=== PATIENT | male | born 1990 | race Caucasian/White ===

== ENCOUNTER 2019-04-08 01:30 | Emergency (ER) | payer OTHER ==
[~2019-04-08] VITALS: Ht 165.1 cm; Wt 74.8 kg
[2019-04-08 02:25] VITALS: BP_SYST 154
--- NOTE | 2019-04-08 02:27 | NUR ---
Patient to ER bed 8 to gown for evaluation. Side rails up.
--- NOTE | 2019-04-08 02:35 | NUR ---
Dr. Adkins bedside for Pt eval
--- NOTE | 2019-04-08 02:55 | NUR ---
Pt BIB family to ED C/O cough x 4 days. Reports sore throat, 8/10 ps and runny nose. No other injuries and or complaints noted VSS no s/s of acute distress Resting on gurney rails up
--- NOTE | 2019-04-08 03:52 | NUR ---
VSS no s/s of acute distress. Resting on gurney rails up
--- NOTE | 2019-04-08 04:11 | NUR ---
Dr. Adkins bedside for Pt update
[2019-04-08] MEDS ORDERED: AMOXICILLIN 500 MG CAPSULE PO ONE (04:45)
[2019-04-08 05:05] VITALS: BP_SYST 148
--- NOTE | 2019-04-08 05:05 | NUR ---
Patient given written and verbal discharge instructions and verbalizes understanding. ER MD discussed with patient the results and treatment provided. Patient in stable condition. ID arm band removed. Rx of Amoxicillin given. Patient educated on pain management and to follow up with PMD. Pain Scale 0/10 Opportunity for questions provided and answered. Medication side effect fact sheet provided.
== END 2019-04-08 05:05 | disposition home or self-care (01) ==
LOC: SED 01:30
DX: J40 Bronchitis, not specified as acute or chronic (principal); I10 Essential (primary) hypertension
CPT/HCPCS: 36415; 71045; 86403; 87081; 99284

== ENCOUNTER 2020-12-18 08:04 | Emergency (ER) | payer OTHER ==
[~2020-12-18] VITALS: Ht 167.6 cm; Wt 70.3 kg
[2020-12-18 08:05] VITALS: BP_SYST 158
[2020-12-18 08:57] VITALS: BP_SYST 158
== END 2020-12-18 08:58 | disposition home or self-care (01) ==
LOC: SED 08:04
DX: L98.8 Other specified disorders of the skin and subcutaneous tissue (principal); J45.909 Unspecified asthma, uncomplicated
CPT/HCPCS: 99281